=== PATIENT | male | born 1960 | race Caucasian/White ===

== ENCOUNTER 2017-01-16 12:34 | Emergency (ER) | payer OTHER ==
[~2017-01-16] VITALS: Ht 177.8 cm; Wt 94.5 kg
[2017-01-16 12:36] VITALS: BP 151/99
[2017-01-16] MEDS ORDERED: ANTIHYPERTENSIVE PO (14:20)
[2017-01-16] MEDS ORDERED: LEVO175T31 PO (14:20)
== END 2017-01-16 15:26 | disposition home or self-care (01) ==
LOC: ED 14:07
DX: M79.642 Pain in left hand (principal); I10 Essential (primary) hypertension; W22.01XA Walked into wall, initial encounter; Y93.01 Activity, walking, marching and hiking; Y92.098 Other place in other non-institutional residence as the place of occurrence of the external cause; Y99.8 Other external cause status
CPT/HCPCS: 99284